=== PATIENT | female | born 1965 | race African-American/Black ===

== ENCOUNTER 2017-07-27 15:35 | Emergency (ER) | payer MEDICAID ==
[~2017-07-27] VITALS: Ht 165.1 cm; Wt 72.6 kg
[~2017-07-27 15:35] MED LIST: AZITHROMYCIN250 MG ORAL; BACTRIM-DS1 EA ORAL; CYCLOBENZAPRINE10 MG ORAL; IBUPROFEN600 M1 PO; IBUPROFEN600 MG ORAL; MOTRIN600 MG PO; NORCO 5-325 TA1 EACH ORAL; TRAMADOL HCL50 MG ORAL; ULTRAM50 MG ORAL
[2017-07-27] MEDS ORDERED: NKM (15:49)
[2017-07-27 16:00] VITALS: BP 166/77
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
[2017-07-27] MEDS ORDERED: SOMA350 MG PO (16:14)
[2017-07-27] MEDS ORDERED: ROBAXIN-750750 MG PO (16:14)
[2017-07-27] MEDS ORDERED: Ketorolac 60mg Inj IM ONE (16:15)
[2017-07-27] MEDS ORDERED: IBUPROFEN600 MG ORAL (16:15)
[2017-07-27 16:50] VITALS: BP 110/72
== END 2017-07-27 16:55 | disposition home or self-care (01) ==
LOC: EMR 16:15
DX: M54.31 Sciatica, right side (principal); Z87.442 Personal history of urinary calculi; Z88.0 Allergy status to penicillin
CPT/HCPCS: 96372; 99284

== ENCOUNTER 2018-01-12 15:34 | Emergency (ER) | payer SELFPAY ==
[~2018-01-12] VITALS: Ht 160 cm; Wt 73.5 kg
[~2018-01-12 15:34] MED LIST changes: +NKM; +ROBAXIN-750750 MG PO; +SOMA350 MG PO
--- NOTE | 2018-01-12 16:06 | Emergency Room Report ---
History of Present Illness General Chief Complaint: Multiple Trauma/Fall Source: Patient Present Illness HPI 52-year-old female patient presents to ER status post fall one hour ago. Patient reports that she was carrying a box at [employer] and tripped and fell. Patient complaining of right ankle, left wrist, right inner thigh near pelvis and rib pain. Patient denies chest pain, shortness of breath. Patient denies hitting her head. Patient denies dizziness, loss consciousness, syncope. Patient denies history of fainting. Patient reports "I don't think anything is broken but wanted to come and get checked out". she reports that she was able to ambulate independently into the ER. Patient denies pain with ambulation. Allergies: Coded Allergies: PENICILLINS (Verified Allergy, Intermediate, Itching, 11/22/15) Patient History Past Medical History: see triage record Last Menstrual Period: Post Reviewed Nursing Documentation: PMH: Agreed; PSxH: Agreed Nursing Documentation-PMH Hx Dialysis: No - Kidney stones Review of Systems All Other Systems: negative except mentioned in HPI Physical Exam Vital Signs Date Time Temp Pulse Resp B/P (MAP) Pulse Ox O2 Delivery O2 Flow Rate FiO2 01/12/18 15:53 98.3 72 17 131/82 95 98.2 Sp02 EP Interpretation: reviewed, normal General Appearance: well appearing, no apparent distress, alert, GCS 15, non- toxic Head: normocephalic, atraumatic, other - negatiev Raccoon eyes Eyes: bilateral eye normal inspection, bilateral eye PERRL ENT: hearing grossly normal, normal pharynx, no angioedema, normal voice, uvula midline, moist mucus membranes Neck: full range of motion Respiratory: lungs clear, normal breath sounds, no rhonchi, no respiratory distress, no accessory muscle use, no wheezing, speaking full sentences, other - posterior right ribs TTP, no bony deformity Cardiovascular #1: regular rate, rhythm, no edema Cardiovascular #2: 2+ radial (R), 2+ radial (L), 2+ dorsalis pedis (R), 2+ dorsalis pedis (L) Musculoskeletal: back normal, digits/nails normal, gait/station normal, normal range of motion, non-tender, no calf tenderness, pelvis stable, other - NVI, no snuffbox tenderness, cap refill <2sec, AIN, PIN, and radial nerve intact as tested, no ecchymosis Neurologic: alert, oriented x3, responsive, motor strength/tone normal, sensory intact Psychiatric: mood/affect normal Skin: no rash Lymphatic: no adenopathy Medical Decision Making PA Attestation Dr. Ramirez is my supervising Physician whom patient management has been discussed with. Diagnostic Impression: Primary Impression: Fall Additional Impression: Wrist pain ER Course Pt. presents to the ED c/o right ankle, left wrist, left thigh, and rib pain. Ddx considered but are not limited to fracture, sprain, strain, contusion, dislocation. Patient denies difficulty with breathing, SOB, low suspicion for pneumothorax. Denies hitting head, denies loss of consciousness, does not need CT of head at this time. Vital signs: are WNL, pt. is afebrile Ordered X-ray and pain medication. ER COURSE Provided with pain medication. An X-ray of the pelvis was ordered, results show no acute fracture, per the official reading. An X-ray of the right ankle was ordered, results show no acute fracture, per the official reading. An X-ray of the left ankle was ordered, results show no acute fracture, per the official reading. An X-ray of the chest was ordered, results show no acute fracture, per the official reading. Reports pain symptoms improved. Splint was applied to the right wrist and was checked afterwards by me showing good alignment and support with distal neurovascular functioning intact. No snuffbox tenderness, low suspicion for scaphoid fracture. Patient declined crutches. Patient instructed on RICE method: rest, ice, compression, elevation. Patient instructed to WBAT Work note provided. Followup with primary care provider for medical clearance to return to activities. Discuss referral to ortho/pain management/PT as needed. Discuss further imaging with MRI/CT as needed. DISCHARGE: -Rx provided for Tylenol for pain symptoms. At this time pt. is stable for d/c to home. Patient is resting comfortably, in no acute distress, nontoxic appearing, talking without difficulty. Will provide printed patient care instructions, and any necessary prescriptions. Patient instructed to follow with primary care provider in 3 - 5 days and to request further orthopedic follow-up. Care plan and follow up instructions have been discussed with the patient prior to discharge. Take medications as directed. Patient questions asked and answered. Patient reports understanding and agreement to treatment plan. ER precautions given, patient instructed to return to ER immediately for any new or worsening of symptoms. - Please note that this Emergency Department Report was dictated using [employer] technology software, occasionally this can lead to erroneous entry secondary to interpretation by the dictation equipment. Chest X-Ray Diagnostic Results Chest X-Ray Diagnostic Results : Chest X-Ray Ordered: Yes # of Views/Limited/Complete: 1 View Indication: Chest Pain EP Interpretation: Yes PA Xray: Interpretation reviewed, by supervising MD, and agrees with findings. Interpretation: no consolidation, no effusion, no pneumothorax, no acute cardiopulmonary disease Impression: No acute disease PA Scribe Text Lela Enamorado PA-C Other X-Ray Diagnostic Results Other X-Ray Diagnostic Results #1: X-Ray ordered: pelivs # of Views/Limited Vs Complete: 1 View Indication: Pain EP Interpretation: Yes PA Xray: Interpretation reviewed, by supervising MD, and agrees with findings. Interpretation: no dislocation, no soft tissue swelling, no fractures Impression: No acute disease PA Scribe Text Talon Enamorado PA-C Other X-Ray Diagnostic Results #2: X-Ray ordered: right ankle # of Views/Limited Vs Complete: 3 View Indication: Pain EP Interpretation: Yes PA Xray: Interpretation reviewed, by supervising MD, and agrees with findings. Interpretation: no dislocation, no soft tissue swelling, no fractures Impression: No acute disease PA Scribe Text Talon Enamorado PA-C Other X-Ray Diagnostic Results #3: X-Ray ordered: left wrist # of Views/Limited Vs Complete: 3 View Indication: Pain EP Interpretation: Yes PA Xray: Interpretation reviewed, by supervising MD, and agrees with findings. Interpretation: no dislocation, no soft tissue swelling, no fractures Impression: No acute disease PA Scribe Text Talon Enamorado PA-C Last Vital Signs Date Time Temp Pulse Resp B/P (MAP) Pulse Ox O2 Delivery O2 Flow Rate FiO2 01/12/18 15:53 98.3 72 17 131/82 95 98.2 Disposition: HOME, SELF-CARE Condition: Stable Scripts Acetaminophen* (TYLENOL EXTRA STRENGTH*) 500 Mg Tablet 500 MG ORAL Q8H PRN for Prn Headache/Temp > 101, #30 TAB 0 Refills Prov: Pan Enamorado 01/12/18 Patient Instructions: Ankle Sprain, [id number], Rib Contusion, Wrist Pain, [id number] Additional Instructions: Patient instructed to follow up with primary care provider and discuss further referral to orthopedics. Patient instructed on RICE method: rest, ice, compression, elevation. Patient instructed to WBAT. Take medications as directed. Patient questions asked and answered. ER precautions given, patient instructed to return to ER immediately for any new or worsening of symptoms. Pan Enamorado Jan 12, 2018 16:06
[2018-01-12 16:07] VITALS: BP 131/82
[2018-01-12] MEDS ORDERED: Acetaminophen 650mg/20.3ml NG ONE (16:15)
[2018-01-12] MEDS ORDERED: TYLENOL EXTRA500 MG ORAL (16:39)
--- NOTE | 2018-01-12 16:55 | Diagnostic Imaging Report ---
Indication: Right ankle pain Technique: 3 views of the right ankle Comparison: none Findings: No acute fractures. No dislocations. Joint spaces are preserved Impression: Negative
--- NOTE | 2018-01-12 16:55 | Diagnostic Imaging Report ---
Indication: Pelvic pain Technique: One view of the pelvis Comparison: 07/07/2010 Findings: No acute fractures. No dislocations. Joint spaces are preserved. No significant change Impression: Negative
--- NOTE | 2018-01-12 16:56 | Diagnostic Imaging Report ---
Clinical Indication:Left wrist pain Technique: 3 views of the left wrist Comparison: None Findings: No acute fractures. No dislocations. The joint spaces are preserved Impression: Negative
--- NOTE | 2018-01-12 16:56 | Diagnostic Imaging Report ---
Indication: Chest pain Technique: One view of the chest Comparison: 02/09/2013 Findings: Lungs and pleural spaces are clear. Heart size is normal. No significant change Impression: No acute process
[2018-01-12 17:10] VITALS: BP 121/80
== END 2018-01-12 17:10 | disposition home or self-care (01) ==
LOC: EMR 16:18
DX: M25.532 Pain in left wrist (principal); R07.9 Chest pain, unspecified; R10.2 Pelvic and perineal pain; M25.571 Pain in right ankle and joints of right foot; Z88.0 Allergy status to penicillin
CPT/HCPCS: 71045; 72170; 99284

== ENCOUNTER 2018-03-08 12:24 | Emergency (ER) | payer SELFPAY ==
[~2018-03-08 12:24] MED LIST changes: +TYLENOL EXTRA500 MG ORAL
[2018-03-08] MEDS ORDERED: IBUPROFEN600 MG ORAL (15:04)
== END 2018-03-08 12:49 | disposition left against medical advice (07) ==
LOC: EMR 12:46
DX: Z53.21 Procedure and treatment not carried out due to patient leaving prior to being seen by health care provider (principal)
CPT/HCPCS: 99283

== ENCOUNTER 2018-03-08 13:44 | Emergency (ER) | payer SELFPAY ==
[~2018-03-08] VITALS: Ht 165.1 cm; Wt 72.6 kg
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
[2018-03-08 14:57] VITALS: BP 138/90
[2018-03-08] MEDS ORDERED: IBUPROFEN600 MG ORAL (15:04)
--- NOTE | 2018-03-08 17:44 | Diagnostic Imaging Report ---
Indication: Trauma Technique: XRAY Elbow Min 3v L Comparison: None Findings: No definite/displaced acute fracture identified. Elbow joint appears preserved. No elbow joint effusion is appreciated. No focal soft tissue abnormality is appreciated. No radiopaque foreign body seen. IMPRESSION: No definite/displaced acute fracture. No elbow joint effusion/fat pad elevation.
--- NOTE | 2018-03-08 17:46 | Diagnostic Imaging Report ---
Indication: Trauma Technique: XRAY Hand Complete L Comparison: 11/22/2015 Findings: No evidence of acute fracture or dislocation. Alignment and joint spaces are preserved. No radiopaque foreign body seen. Impression: No acute fracture or dislocation.
== END 2018-03-08 14:50 | disposition home or self-care (01) ==
LOC: EMR 14:18
DX: S60.012A Contusion of left thumb without damage to nail, initial encounter (principal); W22.8XXA Striking against or struck by other objects, initial encounter; Y92.89 Other specified places as the place of occurrence of the external cause; Z88.0 Allergy status to penicillin
CPT/HCPCS: 99284

== ENCOUNTER 2019-03-30 14:45 | Emergency (ER) | payer MEDICAID ==
[~2019-03-30] VITALS: Ht 165.1 cm; Wt 72.6 kg
[2019-03-30 15:00] VITALS: BP 132/74
--- NOTE | 2019-03-30 15:00 | NUR ---
ED Nurse Note: pt came in due to pain to lumbar area and down right side of leg, casuing pain to ambulate. using cane. pt was seen by angelo gordillo. will continue to monitor
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
[2019-03-30] MEDS ORDERED: LIDODERM700 M1 TOPIC (15:29)
[2019-03-30] MEDS ORDERED: IBUPROFEN600 MG ORAL (15:29)
[2019-03-30] MEDS ORDERED: CYCLOBENZAPRINE10 MG ORAL (15:29)
[2019-03-30] MEDS ORDERED: Methocarbamol 750mg tab ORAL ONE (15:30)
[2019-03-30] MEDS ORDERED: Ketorolac 30mg Inj IM ONE (15:30)
--- NOTE | 2019-03-30 15:54 | NUR ---
ED Nurse Note: pt medicated as ordered. able to tolerate well.
[2019-03-30 16:08] VITALS: BP 132/74
--- NOTE | 2019-03-30 16:08 | NUR ---
ER DISCHARGE NOTE: Patient is cleared to be discharged per ERMD, pt is aox4, on room air, with stable vital signs. pt was given dc and prescription instructions, pt was able to verbalize understanding, pt id band removed without complications. pt is able to ambulate with steady gait. pt took all belongings.
== END 2019-03-30 16:08 | disposition home or self-care (01) ==
LOC: EMR 15:05
DX: M54.41 Lumbago with sciatica, right side (principal); Z88.0 Allergy status to penicillin; Z87.442 Personal history of urinary calculi
CPT/HCPCS: 96372; 99283; J1885

== ENCOUNTER 2019-09-04 02:53 | Emergency (ER) | payer MEDICAID ==
[~2019-09-04] VITALS: Ht 165.1 cm; Wt 72.6 kg
[~2019-09-04 02:53] MED LIST changes: +LIDODERM700 M1 TOPIC
[2019-09-04 03:10] VITALS: BP 120/81
--- NOTE | 2019-09-04 03:10 | NUR ---
ED Nurse Note: PT walked in to ED for C/O generalized body pain x 1 week. pt stated it got worse today and has pain to her left chest area and right ankle area. pt emili lyons x4.
[2019-09-04] MEDS ORDERED: Ketorolac 30mg Inj IV ONE (03:30)
--- NOTE | 2019-09-04 03:38 | Emergency Room Report ---
History of Present Illness General Chief Complaint: Pain Source: Patient Present Illness HPI Disclaimer: Please note that this report is being documented using [employer] technology. This can lead to erroneous entry secondary to incorrect interpretation by the dictating instrument. HPI: 54-year-old female with no reported medical history presents for evaluation of chest pain and difficulty breathing. Patient states she awoke earlier this evening with sharp pains in her right breast and in the right chest wall making it difficult for her to take a deep breath. She has been having these pains intermittently for the past week. No reported trauma. She is also been getting cramping in the right shoulder and in the right foot and ankle. Again, no trauma to the extremities. She describes it more as an internal pain that cannot be reproduced. Some relief in the shoulder after deep massage. She currently denies any difficulty breathing but still continues to experience the sharp nonradiating chest pains underneath her right breast and in the right chest wall. Exacerbated by bending and twisting motions. She does not smoke cigarettes, no history of asthma, no CAD. Concerned she may have acid reflux and is tried dietary changes. PMH: Sciatica PSH: Denies Allergies: Penicillin Social Hx: Non-smoker. Allergies: Coded Allergies: PENICILLINS (Verified Allergy, Intermediate, Itching, 11/22/15) Patient History Last Menstrual Period: na Nursing Documentation-PMH Hx Dialysis: No - Kidney stones Review of Systems All Other Systems: negative except mentioned in HPI Physical Exam Vital Signs Date Time Temp Pulse Resp B/P (MAP) Pulse Ox O2 Delivery O2 Flow Rate FiO2 09/04/19 03:04 97.9 80 18 127/81 (96) 95 Room Air General: Awake and alert, no acute distress HEENT: NC/AT. EOMI. Chest Wall: No tenderness, no deformity Cardiovascular: RRR. S1 and S2 normal. No murmur appreciated Resp: Normal work of breathing. No cough, wheezing or crackles appreciated Abdomen: Abdomen is soft, nondistended. Nontender Skin: Intact. No abrasions, laceration or rash over the exposed skin MSK: Normal tone and bulk. Moving all extremities. No obvious deformity. The upper extremities have full range of motion and patient is able to abduct past 90 degrees at the shoulders bilaterally as well as internally nocturnally rotate. There is no tenderness over the anterior posterior aspects of either the medial or lateral malleolus and no tenderness in the midfoot. There is no deformity in the lower extremities Neuro: Awake and alert. Mentating appropriately. Medical Decision Making Diagnostic Impression: Primary Impression: Chest wall pain Additional Impression: Muscle spasm ER Course 54-year-old female presents for evaluation of chest wall pain and some difficulty breathing earlier but now resolved. Differential includes was not limited to musculoskeletal strain, muscle spasm, GERD, pneumonia, bronchitis, undiagnosed asthma, angina, ACS, cholecystitis. Abdomen is soft, no evidence of cholecystitis clinically. Will obtain EKG, chest x-ray and screening labs including cardiac enzymes to rule out cardiac causes of this chest pain though my suspicion is that is musculoskeletal in origin. The patient will be treated with Toradol. She arrives with stable vital signs, no acute distress. Laboratory Tests Test 09/04/19 03:35 White Blood Count 6.9 K/UL (4.8-10.8) Red Blood Count 3.62 M/UL (4.20-5.40) L Hemoglobin 11.2 G/DL (12.0-16.0) L Hematocrit 33.1 % (37.0-47.0) L Mean Corpuscular Volume 91 FL (80-99) Mean Corpuscular Hemoglobin 30.9 PG (27.0-31.0) Mean Corpuscular Hemoglobin Concent 33.8 G/DL (32.0-36.0) Red Cell Distribution Width 13.5 % (11.6-14.8) Platelet Count 287 K/UL (150-450) Mean Platelet Volume 6.2 FL (6.5-10.1) L Neutrophils (%) (Auto) 41.0 % (45.0-75.0) L Lymphocytes (%) (Auto) 45.6 % (20.0-45.0) H Monocytes (%) (Auto) 7.0 % (1.0-10.0) Eosinophils (%) (Auto) 5.1 % (0.0-3.0) H Basophils (%) (Auto) 1.3 % (0.0-2.0) Sodium Level 141 MMOL/L (136-145) Potassium Level 4.2 MMOL/L (3.5-5.1) Chloride Level 106 MMOL/L (98-107) Carbon Dioxide Level 28 MMOL/L (21-32) Anion Gap 7 mmol/L (5-15) Blood Urea Nitrogen 13 mg/dL (7-18) Creatinine 1.1 MG/DL (0.55-1.30) Estimate Glomerular Filtration Rate > 60 mL/min (>60) Glucose Level 100 MG/DL (74-106) Calcium Level 9.6 MG/DL (8.5-10.1) Total Bilirubin 0.3 MG/DL (0.2-1.0) Aspartate Amino Transferase (AST) 21 U/L (15-37) Alanine Aminotransferase (ALT) 26 U/L (12-78) Alkaline Phosphatase 111 U/L (46-116) Troponin I 0.006 ng/mL (0.000-0.056) Total Protein 7.8 G/DL (6.4-8.2) Albumin 3.3 G/DL (3.4-5.0) L Globulin 4.5 g/dL Albumin/Globulin Ratio 0.7 (1.0-2.7) L EKG Diagnostic Results EKG Time: 03:39 Rate: normal Rhythm: NSR ST Segments: no acute changes Other Impression Sinus rhythm, normal axis, normal intervals, no ST segment changes Rhythm Strip Diag. Results Rhythm Strip Time: 03:39 EP Interpretation: yes Rate: 70s Rhythm: NSR, no PVC's, no ectopy Chest X-Ray Diagnostic Results Chest X-Ray Diagnostic Results : Chest X-Ray Ordered: Yes # of Views/Limited/Complete: 1 View Indication: Chest Pain EP Interpretation: Yes Interpretation: no consolidation, no effusion, no pneumothorax, no acute cardiopulmonary disease Impression: No acute disease Electronically Signed by: Electronically signed by Dr. Mike Alicea Reevaluation Time: 04:31 Last Vital Signs Date Time Temp Pulse Resp B/P (MAP) Pulse Ox O2 Delivery O2 Flow Rate FiO2 09/04/19 03:10 98.0 77 18 120/81 97 Room Air Reevaluation Impression EKG, chest x-ray, labs including cardiac enzymes returned within normal limits. The patient reports feeling somewhat better after receiving Toradol. Her recent late night awakenings for sharp right-sided breast and chest wall pain as well as intermittent shortness of breath may related to GERD or muscle spasm I do not believe she is having a major coronary event at this time. She will be discharged with NSAIDs, Pepcid, cyclobenzaprine. She has not seen her PMD in many years and I have advised her to follow-up and make an appointment for reevaluation to discuss all her new symptoms. She may require further testing as an outpatient but I do not believe she requires further labs or imaging in the emergency department at this time. She is well-appearing and vital signs are within normal minutes. We discussed reasons to return to the emergency department. She understands and agrees with this treatment plan will be discharged home. Disposition: HOME, SELF-CARE Condition: Stable Scripts Famotidine* (Pepcid 20mg tablet*) 20 Mg Tablet 20 MG ORAL DAILY, #30 TAB 0 Refills Prov: Mike Alicea MD 09/04/19 Ibuprofen* (MOTRIN*) 600 Mg Tablet 600 MG ORAL THREE TIMES A DAY, #21 TAB 0 Refills Prov: Mike Alicea MD 09/04/19 Cyclobenzaprine Hcl* (FLEXERIL*) 10 Mg Tablet 10 MG ORAL THREE TIMES A DAY for 7 Days, #21 TAB Prov: Mike Alicea MD 09/04/19 Referrals: NON PHYSICIAN (PCP) Mike Alicea MD Sep 04, 2019 03:38
--- NOTE | 2019-09-04 03:40 | NUR ---
ED Nurse Note: blood sample sent down to lab
[2019-09-04 03:45] LABS: BASOPHILS % (AUTO) 1.3 % (0.0-2.0); EOSINOPHILS % (AUTO) 5.1 % (0.0-3.0); HEMATOCRIT 33.1 % (37.0-47.0); HEMOGLOBIN 11.2 G/DL (12.0-16.0); LYMPHOCYTES % (AUTO) 45.6 % (20.0-45.0); MEAN CORPUSCULAR VOLUME 91 FL (80-99); PLATELET COUNT 287 K/UL (150-450); RED BLOOD COUNT 3.62 M/UL (4.20-5.40); RED CELL DISTRIBUTION WIDTH 13.5 % (11.6-14.8); WHITE BLOOD COUNT 6.9 K/UL (4.8-10.8)
[2019-09-04 03:53] LABS: ANION GAP 7 mmol/L (5-15); BLOOD UREA NITROGEN 13 mg/dL (7-18); CALCIUM 9.6 MG/DL (8.5-10.1); CARBON DIOXIDE 28 MMOL/L (21-32); CHLORIDE 106 MMOL/L (98-107); CREATININE 1.1 MG/DL (0.55-1.30); POTASSIUM 4.2 MMOL/L (3.5-5.1); SODIUM 141 MMOL/L (136-145)
[2019-09-04 03:57] LABS: ALANINE AMINOTRANSFERASE 26 U/L (12-78); ALBUMIN 3.3 G/DL (3.4-5.0); ALBUMIN/GLOBULIN RATIO 0.7 (1.0-2.7); ALKALINE PHOSPHATASE 111 U/L (46-116); ASPARTATE AMINO TRANSFERASE 21 U/L (15-37); BILIRUBIN,TOTAL 0.3 MG/DL (0.2-1.0)
[2019-09-04] MEDS ORDERED: IBUPROFEN600 MG ORAL (04:30)
[2019-09-04] MEDS ORDERED: FAMOTIDINE20 MG ORAL (04:30)
[2019-09-04] MEDS ORDERED: CYCLOBENZAPRINE10 MG ORAL (04:30)
[2019-09-04 04:38] VITALS: BP 118/84
--- NOTE | 2019-09-04 04:38 | NUR ---
ER DISCHARGE NOTE: Patient is cleared to be discharged per ERMD, pt is aox4, on room air, with stable vital signs. pt was given dc instructions, pt was able to verbalize understanding, pt id band and iv site removed without complications. pt is able to ambulate with steady gait. pt took all belongings.
--- NOTE | 2019-09-04 05:25 | Diagnostic Imaging Report ---
EXAM: XR Chest, 1 View CLINICAL HISTORY: CP TECHNIQUE: Frontal view of the chest. COMPARISON: Prior study dated 01/12/18 not available for comparison. FINDINGS: Lungs: Unremarkable. No consolidation. Pleural space: Unremarkable. No pneumothorax. Heart: Unremarkable. No cardiomegaly. Mediastinum: Unremarkable. Bones/joints: Degenerative changes of the spine. IMPRESSION: No acute findings.
== END 2019-09-04 04:38 | disposition home or self-care (01) ==
LOC: EMR 03:27
DX: R07.9 Chest pain, unspecified (principal); M62.838 Other muscle spasm; Z88.0 Allergy status to penicillin
CPT/HCPCS: 36415; 71045; 80053; 84484; 85025; 93005; 96374; J1885; Z7502; 99284

== ENCOUNTER 2020-02-17 19:00 | Emergency (ER) | payer MEDICAID ==
[~2020-02-17] VITALS: Ht 162.6 cm; Wt 72.6 kg
[~2020-02-17 19:00] MED LIST changes: +FAMOTIDINE20 MG ORAL
[2020-02-17 19:10] VITALS: BP 131/87
--- NOTE | 2020-02-17 19:12 | NUR ---
ED Nurse Note: Patient walked into ED accompanied by family member c/o female urogenital problems, states that she has been feeling a burning sensation upon urination since february 01, states that she also has low back pain. states that urination has been more frequent as well. patient is alert and oriented x4, urine sent down to lab. will continue to monitor
--- NOTE | 2020-02-17 19:20 | Emergency Room Report ---
History of Present Illness General Chief Complaint: Female Urogenital Problems Source: Patient Present Illness HPI Patient is a 54-year-old female past medical history of frequent UTIs who presents to the ER complaining of urinary frequency. Patient states that she had urinary frequency while in [place] on [address] and took 4 days of old antibiotics that she had at home. She does not know what it is but says it was a white pill. She states that she got a little bit better but started having urinary frequency again today. She denies any abdominal pain, nausea, vomiting , fever, or chills Allergies: Coded Allergies: PENICILLINS (Verified Allergy, Intermediate, Itching, 11/22/15) COVID-19 Screening Contact w/high risk pt: No Recent Travel to affected area: No Experienced COVID-19 symptoms?: No COVID-19 Testing performed UPHOLSTERER INSIDE: No Patient History Last Menstrual Period: nq Now: No Reviewed Nursing Documentation: PMH: Agreed; PSxH: Agreed Nursing Documentation-PMH Past Medical History: No History, Except For Hx Dialysis: No - Kidney stones Review of Systems All Other Systems: negative except mentioned in HPI Physical Exam Vital Signs Date Time Temp Pulse Resp B/P (MAP) Pulse Ox O2 Delivery O2 Flow Rate FiO2 02/17/20 19:08 98.1 80 18 131/87 (102) 98 Room Air Sp02 EP Interpretation: reviewed, normal General Appearance: no apparent distress, alert, GCS 15, non-toxic Head: normocephalic, atraumatic Eyes: bilateral eye normal inspection, bilateral eye PERRL ENT: hearing grossly normal, normal pharynx, no angioedema, normal voice Neck: full range of motion, supple/symm/no masses Respiratory: chest non-tender, lungs clear, normal breath sounds, speaking full sentences Cardiovascular #1: regular rate, rhythm, no edema Gastrointestinal: normal bowel sounds, non tender, soft, non-distended, no guarding, no rebound Rectal: deferred Genitourinary: no CVA tenderness Musculoskeletal: normal range of motion Neurologic: grip assembler III-XII nml as tested, oriented x3 Psychiatric: no suicidal/homicidal ideation Skin: no rash Lymphatic: no adenopathy Medical Decision Making Diagnostic Impression: Primary Impression: UTI (urinary tract infection) ER Course Patient has partially treated UTI. Patient started on Macrobid. She is nontoxic-appearing and has no abdominal pain. After discussing risks and benefits of further diagnostics, treatment plans, as well as indications for and risks of admission, the patient is agreeable to being discharged home. I have explained that their evaluation and treatment in the emergency department today is an important step towards them achieving better health but that their evaluation today is not intended to replace further evaluation and treatment by a physician in their local clinic. I have explained that while the current findings suggest no immediate life threatening emergency they will require further evaluation and treatment by a physician of their choice in their area. They understand that it will be necessary for them to review the final reports of their ED visit with their clinic physician. We have reviewed indications for return to the Emergency Department. I have explained that additional time may need to pass and/or additional testing as an outpatient may be necessary before a definitive diagnosis can be made. They tell me they are willing to follow up as instructed within the timeframe I recommend. They appear to understand what we discussed. Additionally they understand that if they are unable to be seen by an outpatient physician they are welcome, and in fact should, return to the Emergency Department for a repeat evaluation. The patient is stable at time of discharge. Last Vital Signs Date Time Temp Pulse Resp B/P (MAP) Pulse Ox O2 Delivery O2 Flow Rate FiO2 02/17/20 19:08 98.1 80 18 131/87 (102) 98 Room Air Disposition: HOME, SELF-CARE Condition: Stable Scripts Nitrofurantoin Monohyd/M-Cryst* (MACROBID 100 MG*) 100 Mg Capsule 100 MG ORAL EVERY 12 HOURS for 7 Days, CAP Prov: Lynette Hennessy M.D. 02/17/20 Additional Instructions: The patient was provided with discharge instructions, notified to follow-up with a primary care doctor and or specialist in the next 24-48 hours, and to return to the ED if they have worsening of their symptoms. Please note that this report is being documented using [employer] technology. This can lead to erroneous entry secondary to incorrect interpretation by the dictating instrument. Lynette Hennessy M.D. February 17, 2020 19:20
[2020-02-17 19:33] LABS: APPEARANCE,URINE CLEAR; BILIRUBIN, URINE NEGATIVE (NEGATIVE); COLOR,URINE PALE YELLOW; GLUCOSE, URINE (UA) NEGATIVE (NEGATIVE); KETONES,URINE 1+ (NEGATIVE); LEUKOCYTE ESTERASE ,URINE 1+ (NEGATIVE); NITRITE,URINE NEGATIVE (NEGATIVE); PH,URINE 5 (4.5-8.0); PROTEIN,URINE NEGATIVE (NEGATIVE); UROBILINOGEN,URINE NORMAL MG/DL (0.0-1.0)
[2020-02-17 19:50] VITALS: BP 125/82
[2020-02-17] MEDS ORDERED: NITROFURANTOIN100 M2 ORAL (19:50)
== END 2020-02-17 19:50 | disposition home or self-care (01) ==
LOC: EMR 19:34
DX: N39.0 Urinary tract infection, site not specified (principal); Z87.442 Personal history of urinary calculi; Z88.0 Allergy status to penicillin
CPT/HCPCS: 81003; Z7502; 99283

== ENCOUNTER 2020-06-26 23:09 | Emergency (ER) | payer MEDICAID ==
[~2020-06-26] VITALS: Ht 162.6 cm; Wt 72.6 kg
[~2020-06-26 23:09] MED LIST changes: +NITROFURANTOIN100 M2 ORAL
[2020-06-26 23:30] VITALS: BP 125/67
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
--- NOTE | 2020-06-27 01:00 | NUR ---
ED Nurse Note: pt went for ct
--- NOTE | 2020-06-27 01:15 | NUR ---
ED Nurse Note: pt back from ct
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
[2020-06-27] MEDS ORDERED: Ketorolac 60mg Inj IM ONE (01:45)
--- NOTE | 2020-06-27 02:09 | Diagnostic Imaging Report ---
EXAM: CT Head Without Intravenous Contrast CLINICAL HISTORY: PAIN. Trauma TECHNIQUE: Axial computed tomography images of the head/brain without intravenous contrast. CTDI [place] 53.40 [place] [address].70 mGy-cm. One or more of the following dose reduction techniques were used: automated exposure control, adjustment of the mA and/or kV according to patient size, use of iterative reconstruction technique. COMPARISON: No relevant prior studies available. FINDINGS: Brain: Unremarkable. No hemorrhage. No significant white matter disease. No edema. Ventricles: Unremarkable. Bones/joints: Unremarkable. No acute fracture. Soft tissues: Unremarkable. Sinuses: Focal areas of mucosal thickening in the paranasal sinuses. Mastoid air cells: Unremarkable as visualized. No mastoid effusion. IMPRESSION: No CT evidence for acute intracranial injury.
[2020-06-27] MEDS ORDERED: IBUPROFEN600 M1 ORAL (02:18)
[2020-06-27] MEDS ORDERED: ZOFRAN ODT8 MG ORAL (02:18)
[2020-06-27] MEDS ORDERED: TYLENOL EXTRA500 MG ORAL (02:18)
[2020-06-27 02:25] VITALS: BP 131/66
== END 2020-06-27 02:25 | disposition home or self-care (01) ==
LOC: EMR 23:54
DX: S00.83XA Contusion of other part of head, initial encounter (principal); S06.0X0A Concussion without loss of consciousness, initial encounter; W22.8XXA Striking against or struck by other objects, initial encounter; Y93.9 Activity, unspecified; Y92.9 Unspecified place or not applicable; Z87.442 Personal history of urinary calculi; Z88.0 Allergy status to penicillin
CPT/HCPCS: 70450; 96372; Z7502; 99284